=== PATIENT | female | born 1985 | race Caucasian/White ===

== ENCOUNTER 2017-09-10 12:30 | Emergency (ER) | payer OTHER ==
--- NOTE | 2017-09-10 14:04 | ED Physician Documentation ---
PD HPI URI - Stated complaint Stated Complaint: SINUS PRESSURE - Chief complaint Chief Complaint: Resp - History obtained from History obtained from: Patient - History of Present Illness Timing - onset: How many weeks ago (had URI symptoms for 1-2 weeks and now with focal sinus pressure and pain, with purulent draiange on nose blowing.) Timing duration: Days (for the sinus symptoms themselves.) Timing details: Gradual onset Associated symptoms: Nasal congestion, Sinus pain. No: Fever, Sore throat, Dry cough, Dyspnea Contributing factors: No: Sick contact, Travel, Immunocompromised Similar symptoms before: Has not had sx before Recently seen: Not recently seen Review of Systems Constitutional: reports: Myalgias. denies: Fever, Chills Nose: reports: Rhinorrhea / runny nose, Sinus pressure / pain Throat: denies: Sore throat Respiratory: denies: Cough GI: denies: Abdominal Pain, Nausea PD PAST MEDICAL HISTORY - Past Medical History Cardiovascular: None Respiratory: None Neuro: None Endocrine/Autoimmune: None - Present Medications Home Medications: Ambulatory Orders Medication Instructions Recorded Confirmed Cephalexin [Keflex] 500 mg PO TID #21 capsule 09/10/17 Dexamethasone [Decadron] 4 mg PO DAILY #5 tablet 09/10/17 Fluconazole [Diflucan] 150 mg PO ONCE #1 tablet 09/10/17 - Allergies Allergies/Adverse Reactions: Allergies Allergy/AdvReac Type Severity Reaction Status Date / Time No Known Drug Allergies Allergy Verified 09/10/17 12:38 PD ED PE NORMAL - Vitals Vital signs reviewed: Yes - General General: Alert and oriented X 3, No acute distress, Well developed/nourished - HEENT HEENT: Ears normal, Pharynx benign, Other (sinus tenderness to percussion maxillary areas. ) - Neck Neck: Supple, no meningeal sign, No adenopathy - Cardiac Cardiac: RRR, No murmur - Respiratory Respiratory: Clear bilaterally - Derm Derm: Normal color, Warm and dry, No rash PD MEDICAL DECISION MAKING - ED course Complexity details: considered differential (recent URI symptoms now with focal sinus symptoms c/w secondary bacterial. ), d/w patient Departure - Departure Disposition: 01 Home, Self Care Clinical Impression: Acute sinusitis Qualifiers: Sinusitis location: maxillary Recurrence: non-recurrent Qualified Code(s): J01.00 - Acute maxillary sinusitis, unspecified Condition: Stable Record reviewed to determine appropriate education?: Yes Instructions: ED Sinusitis Abx Tx Prescriptions: Cephalexin [Keflex] 500 mg PO TID #21 capsule Dexamethasone [Decadron] 4 mg PO DAILY #5 tablet Fluconazole [Diflucan] 150 mg PO ONCE #1 tablet Comments: Continue the nasal cleansing with Kailyn pot and saline spray. Tylenol or ibuprofen if needed for fever or pains. It sounds like a bacterial infection so Keflex 3 times a day for a week. Decadron steroid anti-inflammatory will help quite a bit with decreasing inflammation so that it drains better 2. Recheck if not improving over the next several days. If you do develop a yeast infection, take the Diflucan at the end of the antibiotic course. Discharge Date/Time: 09/10/17 14:28
[2017-09-10 14:30] VITALS: BP 123/73
== END 2017-09-10 14:28 | disposition home or self-care (01) ==
LOC: ED 12:30
DX: J01.00 Acute maxillary sinusitis, unspecified (principal)
CPT/HCPCS: 99283

== ENCOUNTER 2019-10-01 08:00 | Outpatient (CLI) | payer OTHER | END 2019-10-01 23:59 | disposition home or self-care (01) | LOC: COV 08:00 | PROVIDERS: ATTEND Family Medicine | DX: R05 Cough (principal); R50.9 Fever, unspecified | CPT/HCPCS: 81599 ==